=== PATIENT | female | born 1960 | race American Indian/Alaskan Native ===

== ENCOUNTER 2017-12-08 10:49 | Emergency (ER) | payer OTHER ==
[2017-12-08 10:49] VITALS: BMI 36.6
[2017-12-08 11:21] VITALS: PULSE 80; TEMP 98
[2017-12-08 11:48] VITALS: BP 174/98; RESP 18; O2SAT 98
--- NOTE | 2017-12-08 12:44 | ED PDOC ---
Arrival/HPI - General Chief Complaint: Finger,Hand,&Wrist Time Seen by Provider: 12/08/17 11:34 Historian: Patient - History of Present Illness Narrative History of Present Illness (Text): 12/08/17 11:40 Radha Jones is a 57 year old female, whose past medical history includes arthritis, who presents to the emergency department complaining of 10/10 burning and "cutting" pain in right central palm since November. Patient notes pain in little bump in right central palm below 3rd digit, since x2 days. Patient also states she is stiff, with history of arthritis. Patient denies any fever, chills, chest pain, shortness of breath, nausea, vomiting, diarrhea, urinary symptoms, back pain, neck pain, headache, dizziness, or any other complaints. Time/Duration: > month (Pain since November) Symptom Onset: Sudden Symptom Course: Unchanged Quality: Burning, Other ("cutting") Activities at Onset: Light Past Medical History - Provider Review Nursing Documentation Reviewed: Yes - Infectious Disease Hx of Infectious Diseases: None - Tetanus Immunization Tetanus Immunization: Unknown - Cardiac Hx Heart Murmur: Yes Hx Hypertension: Yes - Pulmonary Hx Respiratory Disorders: No - Neurological Hx Neurological Disorder: No - HEENT Hx HEENT Disorder: No - Renal Hx Renal Disorder: No - Endocrine/Metabolic Hx Endocrine Disorders: No - Hematological/Oncological Hx Blood Disorders: No - Integumentary Hx Dermatological Disorder: No - Musculoskeletal/Rheumatological Hx Musculoskeletal Disorders: Yes Hx Arthritis: Yes Hx Falls: No - Gastrointestinal Hx Gastrointestinal Disorders: No - Genitourinary/Gynecological Hx Genitourinary Disorders: No - Psychiatric Hx Depression: No Hx Substance Use: No - Past Surgical History Past Surgical History: No Previous - Anesthesia Hx Anesthesia: No - Suicidal Assessment Feels Threatened In Home Enviroment: No Family/Social History - Physician Review Nursing Documentation Reviewed: Yes Family/Social History: Unknown Family HX Smoking Status: Never Smoked Hx Alcohol Use: No Hx Substance Use: No Hx Substance Use Treatment: No Allergies/Home Meds Allergies/Adverse Reactions: Allergies [place] And Derivatives Allergy (Intermediate, Verified 12/08/17 11:12) SWELLING Review of Systems - Physician Review All systems were reviewed & negative as marked: Yes - Review of Systems Constitutional: Normal. absent: Fevers Eyes: Normal ENT: Normal Respiratory: Normal. absent: SOB, Cough Cardiovascular: Normal. absent: Chest Pain Gastrointestinal: Normal. absent: Abdominal Pain, Constipation, Diarrhea, Nausea, Vomiting Genitourinary Female: Normal Musculoskeletal: Other (bump in right central hand, pain since November/bump to palm below 3rd digit x2 days). absent: Normal Neurological: Normal. absent: Headache, Dizziness Endocrine: Normal. absent: Diaphoresis Hemo/Lymphatic: Normal Psychiatric: Normal Physical Exam Vital Signs Reviewed: Yes Vital Signs Temp Pulse Resp BP Pulse Ox 12/08/17 11:47 80 18 174/98 H 98 12/08/17 11:19 98.0 F 80 20 180/117 H 97 Temperature: Afebrile Blood Pressure: Hypertensive Pulse: Regular Respiratory Rate: Normal Appearance: Positive for: Well-Appearing, Non-Toxic Pain Distress: None Mental Status: Positive for: Alert and Oriented X 3 - Systems Exam Head: Present: Atraumatic, Normocephalic Pupils: Present: PERRL Extroacular Muscles: Present: EOMI Conjunctiva: Present: Normal Mouth: Present: Moist Mucous Membranes Neck: Present: Normal Range of Motion Respiratory/Chest: Present: Clear to Auscultation, Good Air Exchange. No: Respiratory Distress, Accessory Muscle Use Cardiovascular: Present: Regular Rate and Rhythm, Normal S1, S2. No: Murmurs Abdomen: No: Tenderness, Distention, Peritoneal Signs Upper Extremity: Present: Other (ganglion cyst, right central hand). No: Normal Inspection Lower Extremity: Present: Normal Inspection. No: Edema Neurological: Present: GCS=15, CN II-XII Intact, Speech Normal Skin: Present: Warm, Dry, Normal Color. No: Rashes Psychiatric: Present: Alert, Oriented x 3, Normal Insight, Normal Concentration Medical Decision Making ED Course and Treatment: 12/08/17 11:40 Impression: 57 year old female presents to emergency department for pain to right palm since November. Plan: -- Reassess and disposition Prior Visits: Notes and results from previous visits were reviewed. Progress Notes: 12/08/17 11:47 Patient discharged home and to follow up with PMD as directed. - Scribe Statement The provider has reviewed the documentation as recorded by the Scribe Sade Pacheco All medical record entries made by the Scribe were at my direction and personally dictated by me. I have reviewed the chart and agree that the record accurately reflects my personal performance of the history, physical exam, medical decision making, and the department course for this patient. I have also personally directed, reviewed, and agree with the discharge instructions and disposition. Disposition/Present on Arrival - Present on Arrival Any Indicators Present on Arrival: No History of DVT/PE: No History of Uncontrolled Diabetes: No Urinary Catheter: No History of Decub. Ulcer: No History Surgical Site Infection Following: None - Disposition Have Diagnosis and Disposition been Completed?: Yes Diagnosis: Ganglion cyst Disposition: HOME/ ROUTINE Disposition Time: 12:00 Patient Plan: Discharge Condition: GOOD Discharge Instructions (ExitCare): Ganglion Cyst (DC) Prescriptions: Ibuprofen [Motrin Tab] 800 mg PO TID #30 tab Referrals: Gaurang Laboy MD [Primary Care Provider] - Follow up with primary Heri De Dios DO [Staff Provider] - Follow up with primary Forms: [employer] (Welsh)
== END 2017-12-08 12:23 | disposition home or self-care (01) ==
LOC: ED 10:49
DX: M67.441 Ganglion, right hand (principal); I10 Essential (primary) hypertension

== ENCOUNTER 2018-07-21 11:46 | Emergency (ER) | payer OTHER ==
[2018-07-21 11:46] VITALS: BMI 39.6
[2018-07-21 12:13] VITALS: BP 159/90; PULSE 73; RESP 18; TEMP 97.7; O2SAT 97
--- NOTE | 2018-07-21 12:22 | ED PDOC ---
Arrival/HPI - General Chief Complaint: Female Genitourinary Time Seen by Provider: 07/21/18 11:54 - History of Present Illness Narrative History of Present Illness (Text): 07/21/18 12:21 Patient with Hx of STD (gonorrhea, chlamydia, HSV) presents to [facility] Emergency Department for vaginal burning x5 days. Patient states she has clear watery discharge, but denies any lesions and/or rash. Patient denies new sexual contacts. Patient says that she started using a new soap 2 weeks ago, and thinks it could be due to the soap. Patient otherwise denies chest pain, shortness of breath, nausea, vomiting, fever, and/or chills. Time/Duration: < week Past Medical History - Provider Review Nursing Documentation Reviewed: Yes - Infectious Disease Hx of Infectious Diseases: None - Tetanus Immunization Tetanus Immunization: Unknown - Reproductive Menopause: Yes - Cardiac Hx Cardiac Disorders: Yes Hx Heart Murmur: Yes Hx Hypertension: Yes - Pulmonary Hx Respiratory Disorders: No - Neurological Hx Neurological Disorder: No - HEENT Hx HEENT Disorder: No - Renal Hx Renal Disorder: No - Endocrine/Metabolic Hx Endocrine Disorders: No - Hematological/Oncological Hx Blood Disorders: No - Integumentary Hx Dermatological Disorder: No - Musculoskeletal/Rheumatological Hx Musculoskeletal Disorders: Yes Hx Arthritis: Yes - Gastrointestinal Hx Gastrointestinal Disorders: No - Genitourinary/Gynecological Hx Genitourinary Disorders: No - Psychiatric Hx Substance Use: No - Past Surgical History Past Surgical History: No Previous - Anesthesia Hx Anesthesia: No - Suicidal Assessment Feels Threatened In Home Enviroment: No Family/Social History - Physician Review Nursing Documentation Reviewed: Yes Family/Social History: No Known Family HX Smoking Status: Never Smoked Hx Alcohol Use: No Hx Substance Use: No Hx Substance Use Treatment: No Allergies/Home Meds Allergies/Adverse Reactions: Allergies [place] And Derivatives Allergy (Intermediate, Verified 07/21/18 12:03) SWELLING Home Medications: Home Meds Medication Instructions Recorded Confirmed No Known Home Med 07/21/18 07/21/18 Review of Systems - Review of Systems Constitutional: Normal Eyes: Normal ENT: Normal Respiratory: Normal Cardiovascular: Normal Gastrointestinal: Normal Genitourinary Female: Vaginal Discharge (clear/watery). absent: Dysuria Musculoskeletal: Normal Skin: Normal Neurological: Normal Endocrine: Normal Hemo/Lymphatic: Normal Psychiatric: Normal Physical Exam - Physical Exam Narrative Physical Exam (Text): 07/21/18 12:48 speculum exam was not performed due to Patient leaving AMA prior to speculum exam. Vital Signs Temp Pulse Resp BP Pulse Ox 07/21/18 12:11 97.7 F 73 18 159/90 H 97 Temperature: Afebrile Blood Pressure: Hypertensive Pulse: Regular Respiratory Rate: Normal Appearance: Positive for: Well-Appearing, Non-Toxic Pain Distress: None Mental Status: Positive for: Alert and Oriented X 3 - Systems Exam Head: Present: Atraumatic, Normocephalic Pupils: Present: PERRL Extroacular Muscles: Present: EOMI Conjunctiva: Present: Normal Mouth: Present: Moist Mucous Membranes Neck: Present: Normal Range of Motion Respiratory/Chest: Present: Clear to Auscultation, Good Air Exchange. No: Respiratory Distress, Accessory Muscle Use Cardiovascular: Present: Regular Rate and Rhythm, Murmurs, Normal S1, S2 Upper Extremity: Present: Normal Inspection. No: Cyanosis, Edema Lower Extremity: Present: Normal Inspection. No: Edema Neurological: Present: GCS=15, CN II-XII Intact, Speech Normal Skin: Present: Warm, Dry, Normal Color. No: Rashes Psychiatric: Present: Alert, Oriented x 3, Normal Insight, Normal Concentration Medical Decision Making ED Course and Treatment: 07/21/18 12:49 PLAN: - GC RNA - Urinalysis - Urine culture Please note, prior to performing speculum exam and initiating treatment that Patient elected to sign out AGAINST MEDICAL ADVICE. The patient requested to sign out AGAINST MEDICAL ADVICE. This action is against my medical advice to the patient and the decision was made with informed refusal. The patient was told that further workup is necessary and a full e xplanation of the rationale was given. The risks of leaving were explained to the patient and include but are not limited to increased morbidity and mortality, , and worsening of known or unknown conditions. Patient was AAOX3 and was able to make this informed decision and understood the clinical situation and my explanation of the risks of leaving. The patient voluntarily accepted these risks and signed an AMA form documenting our conversation. The patient was given the opportunity ask questions and reconsider. The patient was encouraged to return to emergency room at any time for further care. She was advised to follow-up with her primary care doctor as soon as possible. Disposition/Present on Arrival - Present on Arrival Any Indicators Present on Arrival: No History of DVT/PE: No History of Uncontrolled Diabetes: No Urinary Catheter: No History of Decub. Ulcer: No History Surgical Site Infection Following: None - Disposition Have Diagnosis and Disposition been Completed?: Yes Diagnosis: Vaginal burning Disposition: AGAINST MEDICAL ADVICE Disposition Time: 12:45 Patient Plan: Discharge Condition: UNKNOWN Additional Instructions: The patient requested to sign out AGAINST MEDICAL ADVICE. This action is against my medical advice to the patient and the decision was made with informed refusal. The patient was told that further workup is necessary and a full explanation of the rationale was given. The risks of leaving were explained to the patient and include but are not limited to increased morbidity and mortality, , and worsening of known or unknown conditions. Patient was AAOX3 and was able to make this informed decision and understood the clinical situation and my explanation of the risks of leaving. The patient voluntarily accepted these risks and signed an AMA form documenting our conversation. The patient was given the opportunity ask questions and reconsider. The patient was encouraged to return to emergency room at any time for further care. She was advised to follow-up with her primary care doctor as soon as possible. Forms: [employer] (Upper Sorbian)
[2018-07-21 13:13] LABS: URINE BILIRUBIN NEGATIVE (NEGATIVE); URINE BLOOD NEGATIVE (NEGATIVE); URINE GLUCOSE (UA) NEGATIVE (NEGATIVE); URINE LEUKOCYTE ESTERASE NEGATIVE Leu/uL (NEGATIVE); URINE PROTEIN TRACE mg/dL (<30 mg/dL); URINE UROBILINOGEN 0.2 E.U./dL (<1 E.U./dL)
[2018-07-21 13:16] LABS: URINE APPEARANCE CLEAR (CLEAR); URINE COLOR YELLOW (YELLOW)
[2018-07-21 13:18] LABS: URINE BACTERIA MANY /hpf; URINE EPITHELIAL CELLS MANY /hpf (0-5); URINE RBC 0 - 2 /hpf (0-2)
[2018-07-21 13:19] LABS: URINE AMORPHOUS SEDIMENT FEW /hpf
== END 2018-07-21 12:47 | disposition left against medical advice (07) ==
LOC: ED 11:46
DX: R10.2 Pelvic and perineal pain (principal)

== ENCOUNTER 2018-09-28 20:15 | Emergency (ER) | payer OTHER ==
[2018-09-28 20:15] VITALS: BMI 39.6
[2018-09-28 20:44] VITALS: RESP 18; TEMP 97.9
[2018-09-28 20:46] VITALS: BP 148/90; PULSE 90; O2SAT 98
[2018-09-28 21:39] LABS: URINE BILIRUBIN NEGATIVE (NEGATIVE); URINE BLOOD NEGATIVE (NEGATIVE); URINE GLUCOSE (UA) NEGATIVE (NEGATIVE); URINE LEUKOCYTE ESTERASE NEGATIVE Leu/uL (NEGATIVE); URINE PROTEIN TRACE mg/dL (<30 mg/dL); URINE UROBILINOGEN 0.2 E.U./dL (<1 E.U./dL)
[2018-09-28 21:40] LABS: URINE APPEARANCE CLEAR (CLEAR); URINE COLOR YELLOW (YELLOW)
[2018-09-28 21:45] LABS: URINE RBC 0 - 2 /hpf (0-2); URINE WBC 0 - 2 /hpf (0-6)
--- NOTE | 2018-09-28 21:53 | ED PDOC ---
Arrival/HPI <Dwaine Gamble - Last Filed: 09/28/18 22:56> - General Historian: Patient - History of Present Illness Narrative History of Present Illness (Text): 58 y/o female with no significant PMH presents to the ED c/o vaginal pruritus and burning x 3 days. Pt is not sexually active. Associated intermittently productive cough x 1 week with sinus congestion and sneezing. Denies fever, chills, vaginal bleeding or discharge or odor, urinary symptoms, abdominal pain, nausea, vomiting, diarrhea, hemoptysis, cald pain/swelling, SOB, chest pain, palpitations, headache, back pain, neck pain, or any other associated symptoms. <Sofi Chino - Last Filed: 09/29/18 03:23> - General Chief Complaint: Female Genitourinary Time Seen by Provider: 09/28/18 20:16 Past Medical History - Provider Review Nursing Documentation Reviewed: Yes - Infectious Disease Hx of Infectious Diseases: None - Tetanus Immunization Tetanus Immunization: Unknown - Cardiac Hx Cardiac Disorders: Yes Hx Heart Murmur: Yes Hx Hypertension: Yes - Pulmonary Hx Respiratory Disorders: No - Neurological Hx Neurological Disorder: No - HEENT Hx HEENT Disorder: No - Renal Hx Renal Disorder: No - Endocrine/Metabolic Hx Endocrine Disorders: No - Hematological/Oncological Hx Blood Disorders: No - Integumentary Hx Dermatological Disorder: No - Musculoskeletal/Rheumatological Hx Musculoskeletal Disorders: Yes Hx Arthritis: Yes - Gastrointestinal Hx Gastrointestinal Disorders: No - Genitourinary/Gynecological Hx Genitourinary Disorders: No - Psychiatric Hx Depression: No Hx Substance Use: No - Past Surgical History Past Surgical History: No Previous - Anesthesia Hx Anesthesia: No - Suicidal Assessment Feels Threatened In Home Enviroment: No <Sofi Chino - Last Filed: 09/29/18 03:23> Family/Social History - Physician Review Nursing Documentation Reviewed: Yes Family/Social History: Unknown Family HX Smoking Status: Never Smoked Hx Alcohol Use: No Hx Substance Use: No Hx Substance Use Treatment: No <Sofi Chino - Last Filed: 09/29/18 03:23> Allergies/Home Meds <Dwaine Gamble - Last Filed: 09/28/18 22:56> <Sofi Chino - Last Filed: 09/29/18 03:23> Allergies/Adverse Reactions: Allergies [place] And Derivatives Allergy (Intermediate, Verified 09/28/18 20:32) SWELLING Review of Systems - Review of Systems Constitutional: Normal. absent: Fevers Eyes: Normal. absent: Vision Changes ENT: Rhinorrhea, Sinus Congestion. absent: Sore Throat Respiratory: Cough, Sputum. absent: SOB Cardiovascular: Normal. absent: Chest Pain, Palpitations, Syncope Gastrointestinal: Normal. absent: Abdominal Pain, Diarrhea, Nausea, Vomiting Genitourinary Female: Other (vaginal itching and burning). absent: Dysuria, Frequency, Vaginal Bleeding, Vaginal Discharge Musculoskeletal: Normal. absent: Back Pain, Neck Pain Skin: Normal. absent: Rash Neurological: Normal. absent: Headache, Dizziness <Sofi Chino - Last Filed: 09/29/18 03:23> Physical Exam Vital Signs Temp Pulse Resp BP Pulse Ox 09/28/18 20:46 90 18 148/90 98 09/28/18 20:32 97.9 F 82 18 97 <Dwaine Gamble - Last Filed: 09/28/18 22:56> Vital Signs Reviewed: Yes Vital Signs Temp Pulse Resp BP Pulse Ox 09/28/18 20:46 90 18 148/90 98 09/28/18 20:32 97.9 F 82 18 97 Temperature: Afebrile Blood Pressure: Normal Pulse: Regular Respiratory Rate: Normal Appearance: Positive for: Well-Appearing, Non-Toxic, Comfortable Pain Distress: None Mental Status: Positive for: Alert and Oriented X 3 - Systems Exam Head: Present: Atraumatic, Normocephalic Pupils: Present: PERRL Extroacular Muscles: Present: EOMI Conjunctiva: Present: Normal Mouth: Present: Moist Mucous Membranes Neck: Present: Normal Range of Motion Respiratory/Chest: Present: Clear to Auscultation, Good Air Exchange. No: Respiratory Distress, Accessory Muscle Use Cardiovascular: Present: Regular Rate and Rhythm, Normal S1, S2, Peripheal Pulses Present Abdomen: No: Tenderness Genitourinary/Pelvic Exam: Present: Normal External Genitalia, Vaginal Discharge (small amount white thick discharge suspicious for candidal infection), Cervical os Closed. No: Vaginal Bleeding, Vaginal Lesions, Adenexal Tenderness, Cervical Motion Tendernes, Odor Back: Present: Normal Inspection. No: CVA Tenderness Upper Extremity: Present: Normal Inspection, Normal ROM, NORMAL PULSES, Neurovascularly Intact, Capillary Refill < 2s. No: Cyanosis, Edema Lower Extremity: Present: Normal ROM Neurological: Present: GCS=15, CN II-XII Intact, Speech Normal, Motor Func Grossly Intact, Normal Sensory Function, Gait Normal Skin: Present: Warm, Dry, Normal Color. No: Rashes Psychiatric: Present: Alert, Oriented x 3, Normal Insight, Normal Concentration, Normal Affect, Normal Mood <Sofi Chino - Last Filed: 09/29/18 03:23> Medical Decision Making - Lab Interpretations Lab Results: Urine Color Yellow (YELLOW) 09/28/18 21:35 Urine Appearance Clear (CLEAR) 09/28/18 21:35 Urine pH 6.0 (4.7-8.0) 09/28/18 21:35 Ur Specific [place] 1.025 (1.005-1.035) 09/28/18 21:35 Urine Protein Trace mg/dL (<30 mg/dL) H 09/28/18 21:35 Urine Glucose (UA) Negative mg/dL (NEGATIVE) 09/28/18 21:35 Urine Ketones Trace mg/dL (NEGATIVE) H 09/28/18 21:35 Urine Blood Negative (NEGATIVE) 09/28/18 21:35 Urine Nitrate Negative (NEGATIVE) 09/28/18 21:35 Urine Bilirubin Negative (NEGATIVE) 09/28/18 21:35 Urine Urobilinogen 0.2 E.U./dL (<1 E.U./dL) 09/28/18 21:35 Ur Leukocyte Esterase Negative Darryl/uL (NEGATIVE) 09/28/18 21:35 Urine RBC 0 - 2 /hpf (0-2) 09/28/18 21:35 Urine WBC 0 - 2 /hpf (0-6) 09/28/18 21:35 Ur Epithelial Cells 3 - 4 /hpf (0-5) 09/28/18 21:35 - Medication Orders Current Medication Orders: Discontinued Medications Fluconazole (Diflucan) 150 mg PO STAT STA; Protocol Stop: 09/28/18 21:47 Last Admin: 09/28/18 22:15 Dose: 150 mg <Dwaine Gamble - Last Filed: 09/28/18 22:56> ED Course and Treatment: Initial Plan: * UA, POC preg * CXR 21:44 urine reviewed, unremarkable diflucan ordered for presumed candidal infection 21:53 Patient unwilling to wait for CXR. Signed informed refusal for CXR. Advised PMD and gynecology followup. Diagnostic testing results and plan of care discussed with patient. Strict instructions given regarding prescription use, importance of followup, and signs/symptoms to return to ER including vaginal discharge, fever, chills, SOB, chest pain, or any other new/worsening symptoms. Pt verbalized understanding of discussion. Patient is A&Ox3, ambulating with steady gait, with vital signs stable for discharge. - Lab Interpretations Lab Results: Urine Color Yellow (YELLOW) 09/28/18 21:35 Urine Appearance Clear (CLEAR) 09/28/18 21:35 Urine pH 6.0 (4.7-8.0) 09/28/18 21:35 Ur Specific [place] 1.025 (1.005-1.035) 09/28/18 21:35 Urine Protein Trace mg/dL (<30 mg/dL) H 09/28/18 21:35 Urine Glucose (UA) Negative mg/dL (NEGATIVE) 09/28/18 21:35 Urine Ketones Trace mg/dL (NEGATIVE) H 09/28/18 21:35 Urine Blood Negative (NEGATIVE) 09/28/18 21:35 Urine Nitrate Negative (NEGATIVE) 09/28/18 21:35 Urine Bilirubin Negative (NEGATIVE) 09/28/18 21:35 Urine Urobilinogen 0.2 E.U./dL (<1 E.U./dL) 09/28/18 21:35 Ur Leukocyte Esterase Negative Darryl/uL (NEGATIVE) 09/28/18 21:35 I have reviewed the lab results: Yes <Sofi Chino - Last Filed: 09/29/18 03:23> - PA / [employer] / Resident Statement MD/DO has reviewed & agrees with the documentation as recorded. <Dwaine Gamble - Last Filed: 09/28/18 22:56> Disposition/Present on Arrival <Dwaine Gamble - Last Filed: 09/28/18 22:56> - Present on Arrival Any Indicators Present on Arrival: No History of DVT/PE: No History of Uncontrolled Diabetes: No Urinary Catheter: No History of Decub. Ulcer: No History Surgical Site Infection Following: None - Disposition Have Diagnosis and Disposition been Completed?: Yes Disposition Time: 21:53 Patient Plan: Discharge <Sofi Chino - Last Filed: 09/29/18 03:23> - Disposition Diagnosis: Vaginal candidiasis, Cough Disposition: HOME/ ROUTINE Patient Problems: Current Active Problems Problem Status Onset Cough Acute Vaginal candidiasis Acute Condition: STABLE Discharge Instructions (ExitCare): Vulvovaginal Yeast Infection, Seasonal Allergies in Adults Additional Instructions: Increase fluids Vagisil daily as needed Take claritin daily Flonase 2 sprays per nostril each morning Followup with patient registrar within 2 days Followup with primary doctor within 2 days Return to ER with any new/worsening symptoms Prescriptions: Loratadine [Claritin] 10 mg PO DAILY #30 tab Fluticasone Nasal [Flonase] 2 actuation NS DAILY #1 bot Benzocaine/Resorcinol [Vagisil Cream] 1 appl TP DAILY PRN #1 tube PRN Reason: vaginal discomfort Referrals: Nannette Barboza MD [Medical Doctor] - Follow up with primary Ahmet Young MD [Staff Provider] - Follow up with primary Forms: [employer] ([place]), WORK NOTE
== END 2018-09-28 22:01 | disposition home or self-care (01) ==
LOC: ED 20:15
DX: B37.3 Candidiasis of vulva and vagina (principal); R05 Cough